=== PATIENT | female | born 1955 | race Caucasian/White ===

== ENCOUNTER 2019-06-20 09:07 | Inpatient (IN) ==
[2019-06-20 11:09] LABS: Albumin 2.1 G/DL (3.4-5.0); Bilirubin,Total 1.8 MG/DL (0.2-1.0); Calcium 8.5 MG/DL (8.5-10.1)
[2019-06-20] MEDS ORDERED: SODIUM CHLORIDE 0.9% 1,000 ML IV STA (12:10)
[2019-06-20 12:13] LABS: Basophils # 0.1 10*3/uL (0.0-0.2); Basophils % 0.2 % (0.0-0.8); Hematocrit 22.6 VOL% (35.7-47.0); Immature Granulocytes % 5.3 %; Immature Granulocytes Absolute 2.09 #; Lymphocytes # 1.3 10*3/uL (1.4-4.0); Lymphocytes % 3.4 % (21.3-54.2); Mean Corpuscular HGB Conc 25.7 GM/DL (32-36); Mean Corpuscular Volume 58.4 FL (87-102); Mean Platelet Volume 10.1 FL (9.6-12.0); Monocytes % 2.2 % (1.7-12.7); NRBC # 0.53 10*3/uL; Neutrophils % 88.9 % (38.7-73.9); Platelet Count 989 T/CUMM (130-400); Red Blood Count 3.87 MC/CUMM (3.8-5.5); Red Cell Distribution Width 25.3 % (9.3-17.3); White Blood Count 39.2 T/CUMM (4-12)
[2019-06-20 12:24] LABS: Hemoglobin 5.8 GM/DL (12.0-16.0)
[2019-06-20 12:31] LABS: Band Neutrophils 13 % (0-10); Lymphocytes 6 % (20-55); Nucleated Red Blood Cells 1 (0-5); Platelet Estimate Increased; Segmented Neutrophils 80 % (50-85); Total Cells Counted 100
[2019-06-20 12:32] LABS: Anisocytosis 3+; Hypochromasia 1+; Polychromasia Slight; Target Cells Few
[2019-06-20 12:33] LABS: Poikilocytosis 1+
[2019-06-20] MEDS ORDERED: ONDANSETRON 4 MG/2 ML VIAL IV PRN (12:44)
[2019-06-20] MEDS ORDERED: ACETAMINOPHEN 325 MG TABLET PO PRN (12:44)
[2019-06-20] MEDS ORDERED: guaiFENesin/DM ER 600-30 MG TABLET PO PRN (12:44)
[2019-06-20] MEDS ORDERED: SODIUM CHLORIDE 0.9% 1,000 ML IV PRN (12:49)
[2019-06-20 13:09] LABS: % Iron Saturation 4.8 % (18-50)
[2019-06-20 14:06] LABS: Basophils # 0.1 10*3/uL (0.0-0.2); Basophils % 0.2 % (0.0-0.8); Hematocrit 22.6 VOL% (35.7-47.0); Immature Granulocytes % 5.3 %; Immature Granulocytes Absolute 2.09 #; Lymphocytes # 1.3 10*3/uL (1.4-4.0); Lymphocytes % 3.4 % (21.3-54.2); Mean Corpuscular HGB Conc 25.7 GM/DL (32-36); Mean Corpuscular Volume 58.4 FL (87-102); Mean Platelet Volume 10.1 FL (9.6-12.0); Monocytes % 2.2 % (1.7-12.7); NRBC # 0.53 10*3/uL; Neutrophils % 88.9 % (38.7-73.9); Platelet Count 989 T/CUMM (130-400); Red Blood Count 3.87 MC/CUMM (3.8-5.5); Red Cell Distribution Width 25.3 % (9.3-17.3); White Blood Count 39.2 T/CUMM (4-12)
[2019-06-20 14:08] LABS: Hemoglobin 5.8 GM/DL (12.0-16.0)
[2019-06-20 14:23] LABS: Anisocytosis 3+; Band Neutrophils 13 % (0-10); Hypochromasia 1+; Lymphocytes 6 % (20-55); Poikilocytosis 1+; Polychromasia Slight; Segmented Neutrophils 80 % (50-85); Total Cells Counted 100
[2019-06-20 14:24] LABS: Target Cells Few
[2019-06-20 14:26] LABS: Platelet Estimate Increased
[2019-06-20 14:34] LABS: Folate 7.3 NG/ML (5.4-24.0); Vitamin B12 1305 PG/ML (211-911)
[2019-06-20] MEDS: SODIUM CHLORIDE 0.9% 1,000 ML IV SCH ×2 (15:22→22:19)
[2019-06-20] MEDS: PIPERACILLIN/TAZOBACTAM 3,375 MG in SODIUM CHLORIDE 0.9% 100 ML IV SCH ×2 (15:23→22:07)
[2019-06-20 15:24] LABS: Sedimentation Rate-Westergren 79 MM/HR (0-30)
[2019-06-20] MEDS ORDERED: ALBUTEROL 2.5 MG/3 ML NEB RESP TX PRN (16:28)
[2019-06-20] MEDS ORDERED: FLUCONAZOLE INJ 200 MG in PREMIX 1 EACH IV SCH (17:00)
[2019-06-20 18:56] LABS: Apearance,Urine CLEAR (Clear); Bilirubin,Urine Negative (Negative); Blood, Urine Negative (Negative); Glucose,Urine (UA) Negative (Negative); Hyaline Casts,Urine 23 /LPF (0-3); Ketones,Urine Negative (Negative); Nitrite,Urine Negative (Negative); Protein,Urine 30 MG/DL; Squamous Epithelial Cell,Urine Occasional /HPF (0-10); Urine Color Amber (Yellow); Urine Specific Gravity 1.019 (1.001-1.035); WBC,Urine <1 /HPF (0-6)
[2019-06-20] MEDS: ALBUTEROL/IPRATROPIUM 3 ML NEB RESP TX SCH (19:15)
[2019-06-20] MEDS: PANTOPRAZOLE 40 MG VIAL IV SCH (20:34)
[2019-06-21] MEDS: ALBUTEROL/IPRATROPIUM 3 ML NEB RESP TX SCH ×4 (00:15→20:25)
[2019-06-21 03:44] LABS: Basophils # 0.1 10*3/uL (0.0-0.2); Basophils % 0.2 % (0.0-0.8); Hematocrit 26.8 VOL% (35.7-47.0); Hemoglobin 7.6 GM/DL (12.0-16.0); Immature Granulocytes % 3.8 %; Immature Granulocytes Absolute 1.27 #; Lymphocytes # 1.2 10*3/uL (1.4-4.0); Lymphocytes % 3.7 % (21.3-54.2); Mean Corpuscular HGB Conc 28.4 GM/DL (32-36); Mean Corpuscular Volume 64.9 FL (87-102); Mean Platelet Volume 9.8 FL (9.6-12.0); Monocytes % 2.3 % (1.7-12.7); NRBC # 0.43 10*3/uL; Platelet Count 863 T/CUMM (130-400); Red Blood Count 4.13 MC/CUMM (3.8-5.5); Red Cell Distribution Width 30.5 % (9.3-17.3)
[2019-06-21 04:07] LABS: Calcium 7.8 MG/DL (8.5-10.1); Osmolality,Calculated 281.5 MOS/KG (273-304)
[2019-06-21 04:12] LABS: Hypochromasia 1+; Lymphocytes 2 % (20-55); Microcytosis 1+; Platelet Estimate Increased; Segmented Neutrophils 97 % (50-85); Total Cells Counted 100
[2019-06-21 04:13] LABS: Polychromasia Few; Target Cells Few
[2019-06-21 04:19] LABS: Albumin 1.9 G/DL (3.4-5.0); Bilirubin,Direct 1.86 MG/DL (0.0-0.20); Bilirubin,Indirect 0.7 MG/DL (0.0-1.0); Bilirubin,Total 2.6 MG/DL (0.2-1.0)
[2019-06-21] MEDS: PIPERACILLIN/TAZOBACTAM 3,375 MG in SODIUM CHLORIDE 0.9% 100 ML IV SCH ×3 (04:31→22:39)
[2019-06-21] MEDS ORDERED: NF- (Fluticasone-Umeclidin-Vilanter [Trelegy Ellipta] 1 inh) INH SCH (09:00)
[2019-06-21] MEDS ORDERED: PANTOPRAZOLE 40 MG TABLET PO SCH (09:00)
[2019-06-21] MEDS: SERTRALINE 100 MG TABLET PO SCH (09:59)
[2019-06-21] MEDS: predniSONE 10 MG TABLET PO SCH (09:59)
[2019-06-21] MEDS: PANTOPRAZOLE 40 MG VIAL IV SCH ×2 (10:00→21:30)
[2019-06-21] MEDS: SODIUM CHLORIDE 0.9% 1,000 ML IV SCH ×2 (12:54→19:52)
[2019-06-21 16:12] LABS: INR 1.1; PT Patient Result 12.2 SECS (9.6-12.2)
[2019-06-21] MEDS: FLUCONAZOLE INJ 100 MG in IV BAG 1 EACH IV SCH (21:31)
[2019-06-22] MEDS: ALBUTEROL/IPRATROPIUM 3 ML NEB RESP TX SCH ×4 (01:20→19:31)
[2019-06-22] MEDS: PIPERACILLIN/TAZOBACTAM 3,375 MG in SODIUM CHLORIDE 0.9% 100 ML IV SCH ×3 (04:09→22:21)
[2019-06-22] MEDS: SODIUM CHLORIDE 0.9% 1,000 ML IV SCH ×2 (06:37→21:33)
[2019-06-22 07:14] LABS: Basophils % 0.2 % (0.0-0.8); Hematocrit 26.8 VOL% (35.7-47.0); Hemoglobin 7.6 GM/DL (12.0-16.0); Lymphocytes % 3.9 % (21.3-54.2); Mean Corpuscular HGB Conc 28.4 GM/DL (32-36); Mean Corpuscular Volume 65.4 FL (87-102); Mean Platelet Volume 9.5 FL (9.6-12.0); Monocytes % 3.1 % (1.7-12.7); NRBC # 0.18 10*3/uL; Neutrophils % 90.8 % (38.7-73.9); Platelet Count 921 T/CUMM (130-400); Red Cell Distribution Width 30.5 % (9.3-17.3); White Blood Count 24.9 T/CUMM (4-12)
[2019-06-22 07:41] LABS: Albumin 1.9 G/DL (3.4-5.0); Bilirubin,Direct 1.37 MG/DL (0.0-0.20); Bilirubin,Indirect 0.3 MG/DL (0.0-1.0); Bilirubin,Total 1.7 MG/DL (0.2-1.0); Osmolality,Calculated 274.8 MOS/KG (273-304); Total Protein 7.1 G/DL (6.4-8.3)
[2019-06-22 07:48] LABS: Hypochromasia 1+; Lymphocytes 5 % (20-55); Microcytosis 1+; Ovalocytes Slight; Platelet Estimate Increased; Segmented Neutrophils 94 % (50-85); Total Cells Counted 100
[2019-06-22 08:31] LABS: Hepatitis B Core IgM Quant < 0.05 Index; Hepatitis B Surface Ag Quant < 0.10 Index; Hepatitis B Surface Ag Result Negative (Negative); Hepatitis C Virus Ab Quant 0.34 Index; Hepatitis C Virus Ab Result Negative (Negative)
[2019-06-22] MEDS: PANTOPRAZOLE 40 MG VIAL IV SCH ×2 (08:32→21:30)
[2019-06-22] MEDS: predniSONE 10 MG TABLET PO SCH (08:32)
[2019-06-22] MEDS: SERTRALINE 100 MG TABLET PO SCH (08:32)
[2019-06-22] MEDS: FLUCONAZOLE INJ 100 MG in IV BAG 1 EACH IV SCH (21:32)
[2019-06-23] MEDS: ALBUTEROL/IPRATROPIUM 3 ML NEB RESP TX SCH ×4 (01:15→18:35)
[2019-06-23] MEDS: PIPERACILLIN/TAZOBACTAM 3,375 MG in SODIUM CHLORIDE 0.9% 100 ML IV SCH ×3 (05:10→20:50)
[2019-06-23] MEDS: predniSONE 10 MG TABLET PO SCH (08:23)
[2019-06-23] MEDS: SERTRALINE 100 MG TABLET PO SCH (08:23)
[2019-06-23] MEDS: PANTOPRAZOLE 40 MG VIAL IV SCH ×2 (08:24→20:47)
[2019-06-23] MEDS: SODIUM CHLORIDE 0.9% 1,000 ML IV SCH ×3 (08:38→20:58)
[2019-06-23] MEDS: LACTATED RINGERS 1,000 ML IV SCH (09:25)
[2019-06-23 09:30] LABS: Hemoglobin A1 (Alkaline) 97.3 % (96.5-98.5); Hemoglobin A2 (Alkaline) 2.7 % (1.5-3.5)
[2019-06-23] MEDS ORDERED: PROPOFOL 200 MG/20 ML VIAL IV ONE (10:00)
[2019-06-23] MEDS ORDERED: LIDOCAINE 2% 5 ML VIAL ONE (10:00)
[2019-06-23] MEDS ORDERED: BISACODYL 5 MG TABLET PO ONE (12:00)
[2019-06-23] MEDS ORDERED: POLYETHYLENE GLYCOL POWDER 255 GM BOTTLE PO ONE (13:00)
[2019-06-23] MEDS: BUDESONIDE/FORMOTEROL 80-4.5 INHALER 6.9 GM INH SCH (20:50)
[2019-06-23] MEDS ORDERED: MAGNESIUM CITRATE 300 ML BOTTLE PO ONE (21:00)
[2019-06-24] MEDS: ALBUTEROL/IPRATROPIUM 3 ML NEB RESP TX SCH ×4 (01:00→21:02)
[2019-06-24] MEDS: PIPERACILLIN/TAZOBACTAM 3,375 MG in SODIUM CHLORIDE 0.9% 100 ML IV SCH ×3 (04:37→22:09)
[2019-06-24 06:19] LABS: INR 1.1; PT Patient Result 11.6 SECS (9.6-12.2)
[2019-06-24 06:37] LABS: Calcium 7.8 MG/DL (8.5-10.1); Osmolality,Calculated 272.5 MOS/KG (273-304)
[2019-06-24 06:43] LABS: Basophils % 0.2 % (0.0-0.8); Eosinophils % 0.1 % (0.00-10.9); Hematocrit 27.2 VOL% (35.7-47.0); Immature Granulocytes % 1.2 %; Immature Granulocytes Absolute 0.24 #; Lymphocytes # 0.8 10*3/uL (1.4-4.0); Lymphocytes % 3.9 % (21.3-54.2); Mean Corpuscular HGB Conc 27.6 GM/DL (32-36); Mean Corpuscular Volume 67.7 FL (87-102); Monocytes % 3.8 % (1.7-12.7); NRBC # 0.03 10*3/uL; Neutrophils % 90.8 % (38.7-73.9); Platelet Count 839 T/CUMM (130-400); Red Blood Count 4.02 MC/CUMM (3.8-5.5); Red Cell Distribution Width 31.1 % (9.3-17.3); White Blood Count 19.6 T/CUMM (4-12)
[2019-06-24 06:44] LABS: Hemoglobin 7.5 GM/DL (12.0-16.0)
[2019-06-24 06:47] LABS: Lymphocytes 5 % (20-55); Segmented Neutrophils 95 % (50-85)
[2019-06-24 06:48] LABS: Platelet Estimate Increased
[2019-06-24 06:49] LABS: Elliptocytes Few; Hypochromasia 1+; Microcytosis 1+; Polychromasia Few; Target Cells Few; Total Cells Counted 101
[2019-06-24 08:53] LABS: Albumin 1.9 G/DL (3.4-5.0); Bilirubin,Direct 0.86 MG/DL (0.0-0.20); Bilirubin,Indirect 0.4 MG/DL (0.0-1.0); Bilirubin,Total 1.3 MG/DL (0.2-1.0); Total Protein 6.9 G/DL (6.4-8.3)
[2019-06-24] MEDS: LACTATED RINGERS 1,000 ML IV SCH ×2 (10:02→10:03)
[2019-06-24] MEDS: FLUCONAZOLE 200 MG TABLET PO SCH (10:12)
[2019-06-24] MEDS: predniSONE 10 MG TABLET PO SCH (10:12)
[2019-06-24] MEDS: SERTRALINE 100 MG TABLET PO SCH (10:12)
[2019-06-24] MEDS: PANTOPRAZOLE 40 MG VIAL IV SCH ×2 (10:13→22:09)
[2019-06-24] MEDS: BUDESONIDE/FORMOTEROL 80-4.5 INHALER 6.9 GM INH SCH ×2 (10:16→22:25)
[2019-06-24] MEDS ORDERED: MAGNESIUM SULF RIDER 4 GM in PREMIX 1 EACH IV PRN (11:37)
[2019-06-24] MEDS ORDERED: MAGNESIUM SULF RIDER 2 GM in PREMIX 1 EACH IV PRN (11:37)
[2019-06-24] MEDS ORDERED: SODIUM CHLORIDE 0.9% 1,000 ML IV PRN (11:40)
[2019-06-24 12:47] LABS: Basophils % 0.1 % (0.0-0.8); Hematocrit 29.1 VOL% (35.7-47.0); Immature Granulocytes % 0.9 %; Immature Granulocytes Absolute 0.18 #; Lymphocytes # 0.5 10*3/uL (1.4-4.0); Lymphocytes % 2.3 % (21.3-54.2); Mean Corpuscular HGB Conc 27.1 GM/DL (32-36); Mean Corpuscular Volume 67.7 FL (87-102); Mean Platelet Volume 8.9 FL (9.6-12.0); Monocytes % 3.3 % (1.7-12.7); NRBC # 0.03 10*3/uL; Neutrophils % 93.4 % (38.7-73.9); Platelet Count 838 T/CUMM (130-400); Red Cell Distribution Width 31.4 % (9.3-17.3); White Blood Count 20.4 T/CUMM (4-12)
[2019-06-24 12:48] LABS: Hemoglobin 7.9 GM/DL (12.0-16.0)
[2019-06-24 12:57] LABS: Anisocytosis 2+; Hypochromasia 1+; Lymphocytes 1 % (20-55); Macrocytosis Slight; Microcytosis 2+; Nucleated Red Blood Cells 1 (0-5); Segmented Neutrophils 96 % (50-85); Total Cells Counted 100
[2019-06-24 12:58] LABS: Elliptocytes Few; Poikilocytosis Slight; Polychromasia 1+; Schistocytes Slight
[2019-06-24 13:02] LABS: Platelet Estimate Increased
[2019-06-24] MEDS: SODIUM CHLORIDE 0.9% 1,000 ML IV SCH (16:51)
[2019-06-24] MEDS: POTASSIUM CHLORIDE RIDER 10 MEQ in PREMIX 1 EACH IV PRN ×5 (17:26→23:29)
[2019-06-24 20:04] LABS: Hemoglobin 8.7 GM/DL (12.0-16.0)
[2019-06-25] MEDS: ALBUTEROL/IPRATROPIUM 3 ML NEB RESP TX SCH ×4 (01:51→19:33)
[2019-06-25 02:45] LABS: Basophils % 0.1 % (0.0-0.8); Hematocrit 29.2 VOL% (35.7-47.0); Hemoglobin 8.2 GM/DL (12.0-16.0); Mean Corpuscular HGB Conc 28.1 GM/DL (32-36); Monocytes % 4.3 % (1.7-12.7); White Blood Count 17.5 T/CUMM (4-12)
[2019-06-25 03:00] LABS: Calcium 7.5 MG/DL (8.5-10.1); Osmolality,Calculated 274.4 MOS/KG (273-304)
[2019-06-25 03:58] LABS: Immature Granulocytes % 0.9 %; Immature Granulocytes Absolute 0.16 #; Lymphocytes # 0.8 10*3/uL (1.4-4.0); Lymphocytes % 4.3 % (21.3-54.2); Mean Corpuscular Volume 69.9 FL (87-102); Mean Platelet Volume 8.7 FL (9.6-12.0); Neutrophils % 90.4 % (38.7-73.9); Platelet Count 682 T/CUMM (130-400); Red Blood Count 4.18 MC/CUMM (3.8-5.5); Red Cell Distribution Width 31.6 % (9.3-17.3)
[2019-06-25] MEDS: POTASSIUM CHLORIDE RIDER 10 MEQ in PREMIX 1 EACH IV PRN ×4 (04:17→07:41)
[2019-06-25 05:05] LABS: Eosinophils 1 % (0-10); Lymphocytes 4 % (20-55); Platelet Estimate Increased; Segmented Neutrophils 92 % (50-85); Total Cells Counted 100
[2019-06-25 05:06] LABS: Anisocytosis 3+; Hypochromasia 2+; Macrocytosis 1+; Microcytosis 2+; Ovalocytes 1+; Polychromasia 2+
[2019-06-25] MEDS: PIPERACILLIN/TAZOBACTAM 3,375 MG in SODIUM CHLORIDE 0.9% 100 ML IV SCH ×3 (05:59→21:37)
[2019-06-25] MEDS: SERTRALINE 100 MG TABLET PO SCH (09:04)
[2019-06-25] MEDS: FLUCONAZOLE 200 MG TABLET PO SCH (09:04)
[2019-06-25] MEDS: PANTOPRAZOLE 40 MG VIAL IV SCH ×2 (09:04→21:37)
[2019-06-25] MEDS: BUDESONIDE/FORMOTEROL 80-4.5 INHALER 6.9 GM INH SCH ×2 (09:04→21:36)
[2019-06-25] MEDS: predniSONE 10 MG TABLET PO SCH (09:05)
[2019-06-25] MEDS: LACTATED RINGERS 1,000 ML IV SCH ×2 (10:18→14:39)
[2019-06-25] MEDS ORDERED: SODIUM CHLORIDE 0.9% 1,000 ML IV PRN (14:27)
[2019-06-25] MEDS: methylPREDNISolone SOD SUC 40 MG/1 ML VIAL IV SCH ×2 (14:42→21:37)
[2019-06-25 20:46] LABS: Hematocrit 33.7 VOL% (35.7-47.0)
[2019-06-25 20:47] LABS: Hemoglobin 9.8 GM/DL (12.0-16.0)
[2019-06-26] MEDS: ALBUTEROL/IPRATROPIUM 3 ML NEB RESP TX SCH ×4 (00:25→19:57)
[2019-06-26 05:07] LABS: Basophils % 0.1 % (0.0-0.8); Hematocrit 31.9 VOL% (35.7-47.0); Hemoglobin 9.3 GM/DL (12.0-16.0); Immature Granulocytes % 0.7 %; Immature Granulocytes Absolute 0.09 #; Lymphocytes # 0.3 10*3/uL (1.4-4.0); Lymphocytes % 2.2 % (21.3-54.2); Mean Corpuscular HGB Conc 29.2 GM/DL (32-36); Mean Corpuscular Volume 71.8 FL (87-102); Monocytes % 1.2 % (1.7-12.7); NRBC # 0.02 10*3/uL; Neutrophils % 95.8 % (38.7-73.9); Platelet Count 622 T/CUMM (130-400); Red Blood Count 4.44 MC/CUMM (3.8-5.5); White Blood Count 12.1 T/CUMM (4-12)
[2019-06-26 05:54] LABS: Hypochromasia 1+; Lymphocytes 1 % (20-55); Microcytosis 1+; Platelet Estimate Adequate; Segmented Neutrophils 99 % (50-85); Total Cells Counted 100
[2019-06-26] MEDS: methylPREDNISolone SOD SUC 40 MG/1 ML VIAL IV SCH ×3 (06:17→21:38)
[2019-06-26] MEDS: PIPERACILLIN/TAZOBACTAM 3,375 MG in SODIUM CHLORIDE 0.9% 100 ML IV SCH ×3 (06:18→21:38)
[2019-06-26 08:20] LABS: Calcium 7.6 MG/DL (8.5-10.1); Osmolality,Calculated 278.4 MOS/KG (273-304)
[2019-06-26] MEDS: PANTOPRAZOLE 40 MG VIAL IV SCH ×2 (08:56→21:39)
[2019-06-26] MEDS: SERTRALINE 100 MG TABLET PO SCH (08:57)
[2019-06-26] MEDS: FLUCONAZOLE 200 MG TABLET PO SCH (08:57)
[2019-06-26] MEDS: BUDESONIDE/FORMOTEROL 80-4.5 INHALER 6.9 GM INH SCH ×2 (08:57→21:38)
[2019-06-26] MEDS: LACTATED RINGERS 1,000 ML IV SCH ×2 (11:51→11:52)
[2019-06-26] MEDS: FERROUS SULFATE 325 MG TABLET PO SCH (21:39)
[2019-06-27] MEDS: ALBUTEROL/IPRATROPIUM 3 ML NEB RESP TX SCH ×4 (00:51→19:48)
[2019-06-27 06:04] LABS: Hematocrit 32.2 VOL% (35.7-47.0); Hemoglobin 9.5 GM/DL (12.0-16.0); Immature Granulocytes % 0.5 %; Immature Granulocytes Absolute 0.04 #; Lymphocytes # 0.2 10*3/uL (1.4-4.0); Lymphocytes % 2.1 % (21.3-54.2); Mean Corpuscular HGB Conc 29.5 GM/DL (32-36); Mean Corpuscular Volume 72.9 FL (87-102); Mean Platelet Volume 9.1 FL (9.6-12.0); Neutrophils % 93.4 % (38.7-73.9); Platelet Count 598 T/CUMM (130-400); Red Blood Count 4.42 MC/CUMM (3.8-5.5); White Blood Count 8.6 T/CUMM (4-12)
[2019-06-27] MEDS: PIPERACILLIN/TAZOBACTAM 3,375 MG in SODIUM CHLORIDE 0.9% 100 ML IV SCH ×3 (06:05→21:14)
[2019-06-27] MEDS: methylPREDNISolone SOD SUC 40 MG/1 ML VIAL IV SCH (06:06)
[2019-06-27 06:25] LABS: Calcium 8.3 MG/DL (8.5-10.1); Osmolality,Calculated 279.4 MOS/KG (273-304)
[2019-06-27 06:45] LABS: Band Neutrophils 1 % (0-10); Hypochromasia 1+; Lymphocytes 2 % (20-55); Microcytosis 2+; Segmented Neutrophils 94 % (50-85); Total Cells Counted 100
[2019-06-27 06:46] LABS: Ovalocytes Slight; Platelet Estimate Increased; Spherocytes Slight; Target Cells Slight; Tear Drop Cells Slight
[2019-06-27] MEDS: POTASSIUM CHLORIDE RIDER 10 MEQ in PREMIX 1 EACH IV PRN ×2 (07:11→09:27)
[2019-06-27] MEDS: FLUCONAZOLE 200 MG TABLET PO SCH (09:28)
[2019-06-27] MEDS: FERROUS SULFATE 325 MG TABLET PO SCH ×2 (09:29→21:17)
[2019-06-27] MEDS: PANTOPRAZOLE 40 MG VIAL IV SCH (09:29)
[2019-06-27] MEDS: SERTRALINE 100 MG TABLET PO SCH (09:30)
[2019-06-27] MEDS: BUDESONIDE/FORMOTEROL 80-4.5 INHALER 6.9 GM INH SCH ×2 (09:30→21:18)
[2019-06-27 12:22] LABS: Free T4 (Free Thyroxine) 0.99 NG/DL (0.76-1.46); Thyroid Stimulating Hormone 0.953 uIU/ml (0.358-3.74)
[2019-06-27] MEDS ORDERED: APIXABAN 5 MG TABLET PO SCH (12:30)
[2019-06-27] MEDS: POTASSIUM CHLORIDE 20 MEQ TABLET PO PRN ×4 (14:09→21:17)
[2019-06-27] MEDS: APIXABAN 5 MG TABLET PO SCH (21:17)
[2019-06-28] MEDS: ALBUTEROL/IPRATROPIUM 3 ML NEB RESP TX SCH ×2 (00:17→07:09)
[2019-06-28] MEDS: PIPERACILLIN/TAZOBACTAM 3,375 MG in SODIUM CHLORIDE 0.9% 100 ML IV SCH (05:06)
[2019-06-28 06:00] LABS: Hematocrit 32.8 VOL% (35.7-47.0); Immature Granulocytes % 0.5 %; Immature Granulocytes Absolute 0.05 #; Lymphocytes # 0.3 10*3/uL (1.4-4.0); Lymphocytes % 2.7 % (21.3-54.2); Mean Corpuscular Volume 75.1 FL (87-102); Monocytes % 7.1 % (1.7-12.7); Neutrophils % 89.7 % (38.7-73.9); Platelet Count 535 T/CUMM (130-400); Red Blood Count 4.37 MC/CUMM (3.8-5.5); White Blood Count 9.4 T/CUMM (4-12)
[2019-06-28 06:17] LABS: Calcium 8.4 MG/DL (8.5-10.1); Osmolality,Calculated 283.1 MOS/KG (273-304)
[2019-06-28 06:21] LABS: % Iron Saturation 5.5 % (18-50); Ferritin 77.9 ng/ml (8-252)
[2019-06-28 06:41] LABS: Hemoglobin 9.3 GM/DL (12.0-16.0)
[2019-06-28 06:46] LABS: Band Neutrophils 2 % (0-10); Lymphocytes 4 % (20-55); Platelet Estimate Increased; Segmented Neutrophils 90 % (50-85); Total Cells Counted 100
[2019-06-28 06:47] LABS: Anisocytosis 2+; Hypochromasia 1+; Macrocytosis 1+
[2019-06-28 06:48] LABS: Polychromasia Slight
[2019-06-28 06:56] LABS: Folate 2.5 NG/ML (5.4-24.0); Vitamin B12 723 PG/ML (211-911)
[2019-06-28 07:11] LABS: Sedimentation Rate-Westergren 46 MM/HR (0-30)
[2019-06-28] MEDS: FLUCONAZOLE 200 MG TABLET PO SCH (08:32)
[2019-06-28] MEDS: FERROUS SULFATE 325 MG TABLET PO SCH (08:32)
[2019-06-28] MEDS: BUDESONIDE/FORMOTEROL 80-4.5 INHALER 6.9 GM INH SCH (08:33)
[2019-06-28] MEDS: APIXABAN 5 MG TABLET PO SCH (08:33)
[2019-06-28] MEDS: SERTRALINE 100 MG TABLET PO SCH (08:33)
[2019-06-28] MEDS ORDERED: PANTOPRAZOLE 40 MG TABLET PO SCH (09:00)
[2019-06-28] MEDS ORDERED: FOLIC ACID 1 MG TABLET PO SCH (09:00)
[2019-06-28] MEDS ORDERED: predniSONE 20 MG TABLET PO SCH (09:00)
[2019-06-28 10:55] VITALS: BP 148/79
[2019-06-28] MEDS ORDERED: rOPINIRole 0.25 MG TABLET PO SCH (21:00)
[2019-06-30 08:53] LABS: Hemoglobin A1 (Alkaline) 97.3 % (96.5-98.5); Hemoglobin A2 (Alkaline) 2.7 % (1.5-3.5)
[2019-06-30 13:15] LABS: JAK2 Result see interpretation
== END 2019-06-28 13:08 | disposition home or self-care (01) | DRG 871 ==
LOC: N.2W 09:07 → N.ED 09:07 → N.EDINP 09:07 → N.2W 14:55 → N.SDSINP 14:55 → SUATTDRO 06-21 13:30 → N.3E 06-21 19:04
PROVIDERS: ADMIT Internal Medicine; ATTEND Hospitalist

== ENCOUNTER 2020-09-01 11:55 | Observation (INO) ==
[2020-09-01] MEDS ORDERED: ACETAMINOPHEN 325 MG TABLET PO PRN (12:34)
[2020-09-01] MEDS ORDERED: DOCUSATE SODIUM 100 MG CAPSULE PO PRN (12:34)
[2020-09-01] MEDS ORDERED: ONDANSETRON 4 MG/2 ML VIAL IV PRN (12:34)
[2020-09-01] MEDS: SODIUM CHLORIDE 0.9% 1,000 ML IV SCH (14:34)
[2020-09-01 19:39] LABS: Calcium 8.7 MG/DL (8.5-10.1); Osmolality,Calculated 282.1 MOS/KG (273-304)
[2020-09-01 20:04] LABS: Basophils % 0.3 % (0.0-0.8); Hematocrit 26.1 VOL% (35.7-47.0); Immature Granulocytes % 0.6 %; Immature Granulocytes Absolute 0.05 #; Lymphocytes # 1.9 10*3/uL (1.4-4.0); Lymphocytes % 23.4 % (21.3-54.2); Mean Corpuscular HGB Conc 24.9 GM/DL (32-36); Monocytes % 8.6 % (1.7-12.7); NRBC # 0.02 10*3/uL; Neutrophils % 67.1 % (38.7-73.9); Platelet Count 530 T/CUMM (130-400); Red Blood Count 4.14 MC/CUMM (3.8-5.5); Red Cell Distribution Width 21.9 % (9.3-17.3); White Blood Count 7.9 T/CUMM (4-12)
[2020-09-01 20:11] LABS: Hemoglobin 6.5 GM/DL (12.0-16.0)
[2020-09-01] MEDS ORDERED: rOPINIRole 0.25 MG TABLET PO SCH (21:00)
[2020-09-01 21:40] LABS: Anisocytosis 2+; Elliptocytes 1+; Hypochromasia 3+; Microcytosis 2+; Platelet Estimate Increased
[2020-09-01 21:41] LABS: Target Cells Few; Tear Drop Cells Few
[2020-09-01] MEDS ORDERED: ALBUTEROL 2.5 MG/3 ML NEB RESP TX PRN (23:00)
[2020-09-02] MEDS ORDERED: SODIUM CHLORIDE 0.9% 1,000 ML IV PRN (06:37)
[2020-09-02] MEDS ORDERED: ALBUTEROL 2.5 MG/3 ML NEB RESP TX SCH (07:00)
[2020-09-02 07:21] LABS: Basophils % 0.5 % (0.0-0.8); Eosinophils # 0.1 10*3/uL (0.0-0.87); Eosinophils % 2.1 % (0.00-10.9); Immature Granulocytes % 0.7 %; Immature Granulocytes Absolute 0.04 #; Lymphocytes % 32.6 % (21.3-54.2); Mean Corpuscular HGB Conc 26.1 GM/DL (32-36); Mean Corpuscular Volume 59.9 FL (87-102); Mean Platelet Volume 9.2 FL (9.6-12.0); Monocytes % 9.1 % (1.7-12.7); Platelet Count 448 T/CUMM (130-400); Red Blood Count 3.84 MC/CUMM (3.8-5.5); Red Cell Distribution Width 21.7 % (9.3-17.3); White Blood Count 6.1 T/CUMM (4-12)
[2020-09-02 07:23] LABS: Albumin 2.8 G/DL (3.4-5.0); Calcium 8.4 MG/DL (8.5-10.1); Osmolality,Calculated 279.1 MOS/KG (273-304); Potassium 3.6 MMOL/L (3.5-5.1); Total Protein 6.7 G/DL (6.4-8.3)
[2020-09-02] MEDS ORDERED: methylPREDNISolone SOD SUC 40 MG/1 ML VIAL IV ONE (08:22)
[2020-09-02 08:44] LABS: Hypochromasia 2+; Microcytosis 1+; Platelet Estimate Adequate
[2020-09-02] MEDS ORDERED: SERTRALINE 100 MG TABLET PO SCH (09:00)
[2020-09-02] MEDS ORDERED: PANTOPRAZOLE 40 MG TABLET PO SCH (09:00)
[2020-09-02] MEDS: SODIUM CHLORIDE 0.9% 1,000 ML IV SCH (14:33)
[2020-09-02 15:29] VITALS: BP 155/92
[2020-09-03] MEDS ORDERED: CHOLECALCIFEROL 1,000 UNIT TABLET PO SCH (09:00)
== END 2020-09-02 17:05 | disposition home or self-care (01) ==
LOC: PREOBSVTOIN 12:53 → N.TELES 12:54 → INTOOBSV 12:54
PROVIDERS: ADMIT Family Medicine; ATTEND Family Medicine